=== PATIENT | female | born 1975 | race Two or more races ===

== ENCOUNTER 2017-01-31 10:51 | Emergency (ER) | payer MEDICAID, OTHER ==
[2017-01-31] MEDS ORDERED: SODIUM CHLORIDE 0.9% 2,000 ML ONE (12:03)
[2017-01-31] MEDS ORDERED: ONDANSETRON 4 MG/2ML 2 ML VIAL ONE (12:03)
[2017-01-31 12:28] LABS: ABSOLUTE NEUTROPHIL COUNT 4.3 K/mm3 (1.8-7.7); BASO % 0.2 % (0.2-1.0); EOS % 0.2 % (0.9-2.9); HEMATOCRIT 42.6 % (37.0-47.0); HEMOGLOBIN 13.9 gm/l (12.0-16.0); IMM NEUT% 0.5 % (0-1); LYMPH % 16.8 % (15-45); MEAN CELL VOLUME 91.2 fl (81.0-99.0); MEAN CORPUSCULAR HEMOGLOBIN 29.8 pg (27.0-31.0); MEAN CORPUSCULAR HGB CONC 32.6 g/dl (33.0-37.0); MEAN PLATELET VOLUME 12.5 fl (7.4-10.4); MONO # 0.7 (0.0-0.8); MONO % 11.1 % (4-12); NEUT % 71.2 % (43-75); PLATELET COUNT 163 K/mm3 (130-400); RED CELL DISTRIBUTION WIDTH 13.4 % (11.5-14.5)
[2017-01-31 12:37] LABS: ALB/GLOB RATIO 1.2 (>1.0); ALBUMIN 4.2 gm/dL (3.5-5.7); CALCIUM 8.4 mg/dL (8.6-10.3)
== END 2017-01-31 14:44 | disposition home or self-care (01) ==
LOC: ED 10:51
DX: R11.2 Nausea with vomiting, unspecified (principal); R19.7 Diarrhea, unspecified